=== PATIENT | female | born 1960 | race African-American/Black ===

== ENCOUNTER 2022-08-07 19:50 | Inpatient (IN) | payer MEDICAID, OTHER ==
[~2022-08-07] VITALS: Ht 167.6 cm; Wt 108.9 kg
[2022-08-07 20:43] LABS: BASOPHILS % 0.4 % (0.0-2.0); EOSINOPHILS % 0.9 % (0.0-5.0); HEMATOCRIT. 34.5 % (36.0-48.0); HEMOGLOBIN. 11.5 g/dL (12.0-16.0); LYMPHOCYTES % 21.6 % (20.0-50.0); MEAN CORPUSCULAR HEMOGLOBIN 32.7 pg (28.0-32.0); MEAN CORPUSCULAR VOLUME 97.8 fL (81.0-99.0); MEAN PLATELET VOLUME 7.7 fl (7.4-10.4); NEUTROPHILS % 71.1 % (40.0-76.0); PLATELET 316 x1000/uL (130-400); RED BLOOD CELL COUNT 3.53 mill/uL (4.2-5.4); RED CELL DISTRIBUTION WIDTH 13.4 % (11.6-14.6)
[2022-08-07] MEDS ORDERED: TENECTEPLASE 50MG/VIAL IV ONE (20:45)
[2022-08-07 20:53] LABS: PROTHROMBIN TIME 10.8 sec (9.6-11.0)
[2022-08-07 20:54] LABS: CHLORIDE 102 mEq/L (98-107)
[2022-08-07] MEDS ORDERED: *TENECTEPLASE FOR AIS XX SCH (21:00)
[2022-08-07 21:03] LABS: ETHANOL BLOOD < 10 mg/dL
[2022-08-07 21:18] LABS: CLARITY URINE CLEAR (CLEAR); COLOR URINE DARK YELLOW (YELLOW); KETONES URINE TRACE (NEGATIVE); LEUKOCYTE ESTERASE URINE NEGATIVE (NEGATIVE); NITRITE URINE NEGATIVE (NEGATIVE); OCCULT BLOOD URINE NEGATIVE (NEGATIVE); PROTEIN URINE 1+ (NEGATIVE); SPECIFIC GRAVITY URINE 1.055 (1.005-1.030); UROBILINOGEN URINE 0.2 E.U./dL (0.2-1.0)
[2022-08-07 21:31] LABS: *AMPHETAMINES SCREEN URINE NEGATIVE (NEGATIVE); *BARBITURATES SCREEN URINE NEGATIVE (NEGATIVE); *BENZODIAZEPINES SCREEN URINE NEGATIVE (NEGATIVE); *COCAINE SCREEN URINE NEGATIVE (NEGATIVE); CANNABINOID URINE SCREEN NEGATIVE (NEGATIVE); METHADONE URINE SCREEN NEGATIVE (NEGATIVE); OPIATES URINE SCREEN NEGATIVE (NEGATIVE); PHENCYCLIDINE URINE SCREEN NEGATIVE (NEGATIVE)
[2022-08-07] MEDS ORDERED: MORPHINE SULFATE 4 MG/ML CPJ (NOT FOR IM USE) IV ONE (21:45)
[2022-08-07] MEDS ORDERED: LORAZEPAM 2MG/ML CPJ IV ONE (23:00)
[2022-08-07] MEDS ORDERED: SODIUM CHLORIDE 0.9% 1,000 ML IV ONE (23:00)
[2022-08-08] VITALS (72 sets, daily range): BP systolic 67–174; BP diastolic 44–149
[2022-08-08] MEDS ORDERED: LABETALOL HCL VIAL 20 MG/4 ML VIAL IV ONE
[2022-08-08] MEDS ORDERED: IOHEXOL-350 100 ML BOTTLE ONE (00:18)
[2022-08-08 06:45] LABS: BASOPHILS % 0.1 % (0.0-2.0); HEMATOCRIT. 37.9 % (36.0-48.0); HEMOGLOBIN. 12.7 g/dL (12.0-16.0); LYMPHOCYTES % 7.4 % (20.0-50.0); MEAN CORPUSCULAR HEMOGLOBIN 32.5 pg (28.0-32.0); MEAN CORPUSCULAR VOLUME 97.1 fL (81.0-99.0); MEAN PLATELET VOLUME 8.4 fl (7.4-10.4); MONOCYTES % 3.2 % (2.0-8.0); NEUTROPHILS % 89.3 % (40.0-76.0); PLATELET 331 x1000/uL (130-400); RED CELL DISTRIBUTION WIDTH 13.1 % (11.6-14.6)
[2022-08-08 06:54] LABS: CHLORIDE 98 mEq/L (98-107)
[2022-08-08] MEDS ORDERED: CLONIDINE 0.1MG TABLET PO PRN (07:45)
[2022-08-08] MEDS ORDERED: LORAZEPAM 2MG/ML CPJ IV SCH (07:45)
[2022-08-08] MEDS ORDERED: ZOLPIDEM TARTRATE 5MG TABLET PO PRN (07:45)
[2022-08-08 07:56] LABS: PHOSPHORUS 0.8 mg/dL (2.5-4.9)
[2022-08-08] MEDS ORDERED: METFORMIN HCL 500MG TABLET PO SCH (08:20)
[2022-08-08] MEDS: LEVETIRACETAM 500MG TABLET PO SCH ×2 (08:47→20:49)
[2022-08-08] MEDS: DULOXETINE HCL 60MG DR CAPSULE PO SCH (08:47)
[2022-08-08] MEDS: LORAZEPAM 0.5MG TABLET PO SCH ×2 (08:48→17:00)
[2022-08-08] MEDS ORDERED: IPRATROPIUM BROMIDE (0.02%) 0.5MG/2.5ML NEB HHN PRN (09:30)
[2022-08-08] MEDS ORDERED: POTASSIUM PHOS,M-BASIC-D-BASIC 10 MMOL in DEXT 5% WATER 246.6667 ML IV NR (10:00)
[2022-08-08] MEDS: MORPHINE SULFATE 2 MG/ML CPJ (NOT FOR IM USE) IV PRN ×2 (10:02→15:21)
[2022-08-08] MEDS: BUSPIRONE HCL 10MG TABLET PO SCH ×4 (10:03→20:49)
[2022-08-08] MEDS ORDERED: LORAZEPAM 2MG/ML CPJ IV PRN ×3 (11:00→21:15)
[2022-08-08] MEDS ORDERED: MAGNESIUM 2 G PREMIX 50 ML IV SCH (11:00)
[2022-08-08] MEDS ORDERED: AMIODARONE HCL 900 MG in DEXT 5% WATER 482 ML IV SCH (11:30)
[2022-08-08] MEDS ORDERED: AMIODARONE HCL 150 MG in DEXT 5% WATER 100 ML IV SCH (11:30)
[2022-08-08] MEDS: MAGNESIUM OXIDE 400MG TABLET PO SCH (11:56)
[2022-08-08] MEDS ORDERED: SODIUM PHOS,M-BASIC-D-BASIC 15 MM in DEXT 5% WATER 245 ML IV NR (14:00)
[2022-08-08] MEDS ORDERED: DIPHENHYDRAMINE 50MG/ML VIAL IV PRN (14:15)
[2022-08-08] MEDS ORDERED: NALOXONE HCL 0.4MG/ML VIAL IV PRN (19:30)
[2022-08-08] MEDS: DEXMEDETOMIDINE 400 MCG/100 ML 100 ML IV PRN ×2 (19:58→22:52)
[2022-08-08] MEDS: ATORVASTATIN CALCIUM 20MG TABLET PO SCH (20:49)
[2022-08-08] MEDS: TRAZODONE HCL 50MG TABLET PO SCH (20:49)
[2022-08-08] MEDS ORDERED: QUETIAPINE FUMARATE 50MG TABLET PO SCH (21:00)
[2022-08-08] MEDS ORDERED: LEVETIRACETAM 500 MG in SODIUM CHLORIDE 0.9% 100 ML IV SCH (21:15)
[2022-08-08] MEDS: LEVETIRACETAM 500MG PREMIX 100 ML IV SCH (22:53)
[2022-08-09] VITALS (80 sets, daily range): BP systolic 119–176; BP diastolic 67–127
[2022-08-09 00:24] LABS: PHOSPHORUS 2.3 mg/dL (2.5-4.9)
[2022-08-09] MEDS: DEXMEDETOMIDINE 400 MCG/100 ML 100 ML IV PRN ×4 (02:20→09:45)
[2022-08-09 04:51] LABS: BASOPHILS % 0.1 % (0.0-2.0); HEMATOCRIT. 36.3 % (36.0-48.0); HEMOGLOBIN. 12.3 g/dL (12.0-16.0); LYMPHOCYTES % 13.5 % (20.0-50.0); MEAN CORPUSCULAR HEMOGLOBIN 32.4 pg (28.0-32.0); MEAN CORPUSCULAR VOLUME 95.5 fL (81.0-99.0); MEAN PLATELET VOLUME 8.2 fl (7.4-10.4); MONOCYTES % 8.5 % (2.0-8.0); NEUTROPHILS % 77.9 % (40.0-76.0); PLATELET 294 x1000/uL (130-400); RED CELL DISTRIBUTION WIDTH 13.1 % (11.6-14.6)
[2022-08-09 05:03] LABS: CHLORIDE 99 mEq/L (98-107)
[2022-08-09 05:16] LABS: HDL CHOLESTEROL 100 mg/dL (40-59); LDL CHOLESTEROL 55 mg/dL (5-100); T4 FREE 0.85 ng/dL (0.76-1.46)
[2022-08-09] MEDS: DULOXETINE HCL 60MG DR CAPSULE PO SCH (09:45)
[2022-08-09] MEDS: LEVETIRACETAM 500MG PREMIX 100 ML IV SCH ×2 (09:45→21:40)
[2022-08-09] MEDS: MAGNESIUM OXIDE 400MG TABLET PO SCH (09:45)
[2022-08-09] MEDS: BUSPIRONE HCL 10MG TABLET PO SCH (09:45)
[2022-08-09] MEDS: LORAZEPAM 0.5MG TABLET PO SCH ×2 (09:45→17:23)
[2022-08-09] MEDS: BUSPIRONE HCL 5MG TABLET PO SCH ×3 (12:25→21:40)
[2022-08-09] MEDS: AMIODARONE HCL 200 MG TABLET PO SCH ×2 (12:25→21:41)
[2022-08-09] MEDS: LABETALOL HCL VIAL 20 MG/4 ML VIAL IV PRN ×2 (18:50→22:37)
[2022-08-09] MEDS: TRAZODONE HCL 50MG TABLET PO SCH (21:40)
[2022-08-09] MEDS: ATORVASTATIN CALCIUM 20MG TABLET PO SCH (21:41)
[2022-08-09] MEDS: QUETIAPINE FUMARATE 50MG TABLET PO SCH (21:42)
[2022-08-10] VITALS (23 sets, daily range): BP systolic 136–170; BP diastolic 74–107
[2022-08-10 05:51] LABS: BASOPHILS % 0.6 % (0.0-2.0); EOSINOPHILS % 0.4 % (0.0-5.0); HEMATOCRIT. 37.9 % (36.0-48.0); HEMOGLOBIN. 12.6 g/dL (12.0-16.0); LYMPHOCYTES % 21.8 % (20.0-50.0); MEAN CORPUSCULAR HEMOGLOBIN 32.2 pg (28.0-32.0); MEAN PLATELET VOLUME 7.6 fl (7.4-10.4); MONOCYTES % 9.8 % (2.0-8.0); NEUTROPHILS % 67.4 % (40.0-76.0); PLATELET 281 x1000/uL (130-400); RED CELL DISTRIBUTION WIDTH 13.5 % (11.6-14.6)
[2022-08-10 06:01] LABS: CHLORIDE 104 mEq/L (98-107)
[2022-08-10] MEDS: LORAZEPAM 0.5MG TABLET PO SCH ×2 (09:00→17:10)
[2022-08-10] MEDS: ASPIRIN 81MG TABLET PO SCH (09:17)
[2022-08-10] MEDS: DULOXETINE HCL 60MG DR CAPSULE PO SCH (09:17)
[2022-08-10] MEDS: AMIODARONE HCL 200 MG TABLET PO SCH ×2 (09:18→22:03)
[2022-08-10] MEDS: BUSPIRONE HCL 5MG TABLET PO SCH ×4 (09:22→22:03)
[2022-08-10] MEDS: LEVETIRACETAM 500MG PREMIX 100 ML IV SCH ×2 (09:23→22:04)
[2022-08-10] MEDS: MAGNESIUM OXIDE 400MG TABLET PO SCH (09:24)
[2022-08-10] MEDS: DILTIAZEM HCL 30MG TABLET PO SCH ×3 (12:39→22:03)
[2022-08-10] MEDS ORDERED: ASPI-1406 MT (14:47)
[2022-08-10] MEDS ORDERED: LISI20TA31 MT (14:47)
[2022-08-10] MEDS ORDERED: METF-874 MT (14:47)
[2022-08-10] MEDS ORDERED: LEVE500T98 MT (14:47)
[2022-08-10] MEDS ORDERED: [UNRECOGNIZED DRUG - CODE] (14:47)
[2022-08-10] MEDS ORDERED: IBUP-2030 MT (14:47)
[2022-08-10] MEDS ORDERED: ATOR20TA MT (14:47)
[2022-08-10] MEDS ORDERED: DICL100G31 TP (14:47)
[2022-08-10] MEDS ORDERED: BUSP15TA3 MT (14:47)
[2022-08-10] MEDS ORDERED: LORA-250 MT (14:47)
[2022-08-10] MEDS ORDERED: DEXTROSE 50% WATER 50ML SYRINGE IV PRN (17:15)
[2022-08-10] MEDS: BLOOD SUGAR DIAGNOSTIC STRIP TEST SCH ×2 (17:15→21:00)
[2022-08-10] MEDS: INSULIN LISPRO 100 UNITS/ML SUBCUT SCH ×2 (17:16→22:06)
[2022-08-10] MEDS: QUETIAPINE FUMARATE 50MG TABLET PO SCH (22:04)
[2022-08-10] MEDS: TRAZODONE HCL 50MG TABLET PO SCH (22:04)
[2022-08-10] MEDS: ATORVASTATIN CALCIUM 20MG TABLET PO SCH (22:04)
[2022-08-11] VITALS: BP 104/47
[2022-08-11 04:00] VITALS: BP 136/70
[2022-08-11] MEDS: DILTIAZEM HCL 30MG TABLET PO SCH (06:41)
[2022-08-11] MEDS: BLOOD SUGAR DIAGNOSTIC STRIP TEST SCH (06:41)
[2022-08-11 08:00] VITALS: BP 125/81
[2022-08-11] MEDS: INSULIN LISPRO 100 UNITS/ML SUBCUT SCH (08:02)
[2022-08-11] MEDS: LEVETIRACETAM 500MG PREMIX 100 ML IV SCH (09:56)
[2022-08-11] MEDS: AMIODARONE HCL 200 MG TABLET PO SCH (09:56)
[2022-08-11] MEDS: LORAZEPAM 0.5MG TABLET PO SCH (09:56)
[2022-08-11] MEDS: ASPIRIN 81MG TABLET PO SCH (09:57)
[2022-08-11] MEDS: DULOXETINE HCL 60MG DR CAPSULE PO SCH (09:57)
[2022-08-11] MEDS: MAGNESIUM OXIDE 400MG TABLET PO SCH (09:57)
[2022-08-11] MEDS: BUSPIRONE HCL 5MG TABLET PO SCH (10:01)
[2022-08-11 12:00] VITALS: BP 156/90
[2022-08-11] MEDS ORDERED: BUSP5TAB3 PO (12:00)
[2022-08-11] MEDS ORDERED: TRAZ-251 PO (12:00)
[2022-08-11] MEDS ORDERED: DILT30TA37 PO (12:00)
[2022-08-11] MEDS ORDERED: QUET50TA PO (12:00)
[2022-08-11] MEDS ORDERED: DULO60CA45 PO (12:00)
[2022-08-11] MEDS ORDERED: AMI2 MT (12:00)
[2022-08-11 13:30] VITALS: BP 156/90
== END 2022-08-11 15:30 | disposition home or self-care (01) | DRG 53 ==
LOC: ER 19:50 → EDBEDREQSVC 22:32 → EDBEDREQ 22:32 → CVICU 08-08 00:36 → 7WST 08-10 17:33
PROVIDERS: ADMIT Internal Medicine; ATTEND Internal Medicine
PROC: 3E03017 Introduction of Other Thrombolytic into Peripheral Vein, Open Approach (ICD-10-PCS; principal; 2022-08-08)
PROC: 4A00X4Z Measurement of Central Nervous Electrical Activity, External Approach (ICD-10-PCS; 2022-08-10)
DX: G40.909 Epilepsy, unspecified, not intractable, without status epilepticus (principal); J96.00 Acute respiratory failure, unspecified whether with hypoxia or hypercapnia; G93.41 Metabolic encephalopathy; E44.0 Moderate protein-calorie malnutrition; E83.51 Hypocalcemia; E83.39 Other disorders of phosphorus metabolism; E11.9 Type 2 diabetes mellitus without complications; D72.829 Elevated white blood cell count, unspecified; I48.92 Unspecified atrial flutter; E83.42 Hypomagnesemia; F41.0 Panic disorder [episodic paroxysmal anxiety]; Z20.822 Contact with and (suspected) exposure to COVID-19; G43.909 Migraine, unspecified, not intractable, without status migrainosus; I10 Essential (primary) hypertension; G47.33 Obstructive sleep apnea (adult) (pediatric); G47.00 Insomnia, unspecified; H57.04 Mydriasis; F43.9 Reaction to severe stress, unspecified; Z78.1 Physical restraint status; Z79.84 Long term (current) use of oral hypoglycemic drugs; Z79.899 Other long term (current) drug therapy; Z81.8 Family history of other mental and behavioral disorders; Z79.82 Long term (current) use of aspirin
CPT/HCPCS: 36415; 70496; 70498; 70551; 71045; 78580; 80048; 80053; 80061; 80305; 80320; 81003; 82962; 83036; 83735; 84100; 84439; 84443; 84481; 84484; 85025; 93005; 93306; 93880; 95816; 97161; 99291; C1893; J0282; J1200; J1815; J1953; J2060; J2270; J2997; J3475; J3490; J7030; J7060; Q9957; Q9967; G0480